=== PATIENT | female | born 1995 | race Caucasian/White ===

== ENCOUNTER 2017-11-04 18:45 | Inpatient (IN) | payer MEDICAID ==
[2017-11-04] MEDS ORDERED: LIDOCAINE 1% (MPF) 30 ML INJ INJ (20:30)
[2017-11-04] MEDS ORDERED: METHYLERGONOVINE 0.2 MG INJ IM (20:30)
[2017-11-04] MEDS ORDERED: IBUPROFEN 600 MG TAB PO (20:30)
[2017-11-04] MEDS ORDERED: CARBOPROST 250 MCG INJ IM (20:30)
[2017-11-04] MEDS ORDERED: OXYTOCIN 30 UNITS/LR 500 ML IV (20:30)
[2017-11-04] MEDS ORDERED: MISOPROSTOL 200 MCG TAB PR (20:30)
[2017-11-04] MEDS: LACTATED RINGER'S 1,000 ML IV (22:54)
[2017-11-04 22:59] LABS: ADD MAN DIFF? NO
[2017-11-04 23:02] LABS: BASOPHILS % 0.4 % (0.0-2.0); EOSINOPHILS # 0.1 10^3/ul (0.0-0.5); EOSINOPHILS % 0.9 % (0.0-7.0); HEMOGLOBIN 11.7 g/dl (12.0-16.0); LYMPHOCYTES # 2.2 10^3/ul (0.8-2.9); LYMPHOCYTES % 22.1 % (15.0-51.0); MEAN CORPUSCULAR HEMOGLOBIN 28.8 pg (29.0-33.0); MEAN CORPUSCULAR HGB CONC 33.4 g/dl (32.0-37.0); MEAN CORPUSCULAR VOLUME 86.2 fl (82.0-101.0); MEAN PLATELET VOLUME 10.8 fl (7.4-10.4); MONOCYTE # 0.5 10^3/ul (0.3-0.9); MONOCYTES % 5.5 % (0.0-11.0); NEUTROPHIL # 6.9 10^3/ul (1.6-7.5); NEUTROPHILS % 70.4 % (39.0-77.0); PLATELET COUNT 320 10^3/UL (140-415); RED BLOOD COUNT 4.06 10^6/ul (4.20-5.40)
[2017-11-04 23:02] LABS: WHITE BLOOD COUNT 9.9 10^3/ul (4.8-10.8)
[2017-11-04 23:19] LABS: INR 0.89; PROTIME 12.1 Sec (11.9-14.9); PT RATIO 0.9
[2017-11-04 23:20] LABS: PARTIAL THROMBOPLASTIN TIME 27.7 Sec (25.0-35.0)
[2017-11-05] MEDS: LACTATED RINGER'S 1,000 ML IV ×2 (06:15→13:01)
[2017-11-05] MEDS: OXYTOCIN 30 UNITS/LR 500 ML IV ×4 (08:21→21:40)
[2017-11-05] MEDS: BUTORPHANOL 2 MG INJ IV ×2 (10:44→13:51)
[2017-11-05 17:39] LABS: RAPID PLASMA REAGIN NONREACTIVE (NR)
[2017-11-05] MEDS ORDERED: OXYCODONE/ASPIRIN (4.88/325) TAB PO (21:00)
[2017-11-05] MEDS ORDERED: HYDROCODONE/APAP (5/325) TAB PO ×2 (21:00)
[2017-11-05] MEDS ORDERED: ACETAMINOPHEN 325 MG TAB PO (21:00)
[2017-11-05] MEDS ORDERED: ONDANSETRON 4 MG INJ IV (21:00)
[2017-11-05] MEDS: SENNA/DOCUSATE NA (8.6MG/50MG) TAB PO (21:38)
[2017-11-06] MEDS: IBUPROFEN 600 MG TAB PO ×5 (00:26→22:52)
[2017-11-06] MEDS: WITCH HAZEL/GLYCERIN PAD PR (00:28)
[2017-11-06] MEDS: BENZOCAINE 20% 56 ML SPRAY TOP (00:28)
[2017-11-06] MEDS: LANOLIN 7 GM TUBE TOP (00:28)
[2017-11-06] MEDS: OXYCODONE/ASPIRIN (4.88/325) TAB PO (09:19)
[2017-11-06] MEDS: SENNA/DOCUSATE NA (8.6MG/50MG) TAB PO ×2 (09:19→21:08)
[2017-11-06] MEDS: DIBUCAINE 1% 30 GM OINT PR (09:19)
[2017-11-06 12:36] LABS: ADD MAN DIFF? NO
[2017-11-06 12:55] LABS: WHITE BLOOD COUNT 8.2 10^3/ul (4.8-10.8)
[2017-11-06 12:55] LABS: BASOPHILS % 0.5 % (0.0-2.0); EOSINOPHILS # 0.1 10^3/ul (0.0-0.5); EOSINOPHILS % 0.7 % (0.0-7.0); HEMATOCRIT 29.4 % (37.0-47.0); HEMOGLOBIN 9.6 g/dl (12.0-16.0); LYMPHOCYTES # 1.6 10^3/ul (0.8-2.9); LYMPHOCYTES % 19.2 % (15.0-51.0); MEAN CORPUSCULAR HEMOGLOBIN 29.1 pg (29.0-33.0); MEAN CORPUSCULAR HGB CONC 32.7 g/dl (32.0-37.0); MEAN CORPUSCULAR VOLUME 89.1 fl (82.0-101.0); MEAN PLATELET VOLUME 10.4 fl (7.4-10.4); MONOCYTE # 0.4 10^3/ul (0.3-0.9); MONOCYTES % 4.7 % (0.0-11.0); NEUTROPHIL # 6.1 10^3/ul (1.6-7.5); NEUTROPHILS % 74.4 % (39.0-77.0); PLATELET COUNT 260 10^3/UL (140-415); RED CELL DISTRIBUTION WIDTH 14.3 % (11.5-14.5)
[2017-11-07] MEDS: IBUPROFEN 600 MG TAB PO ×2 (06:00→10:24)
[2017-11-07] MEDS: SENNA/DOCUSATE NA (8.6MG/50MG) TAB PO (09:01)
[2017-11-07] MEDS: MEASLES,MUMPS,RUBELLA VACCINE INJ SC* (09:01)
== END 2017-11-07 17:30 | disposition home or self-care (01) | DRG 775 ==
LOC: OBT 18:45 → L-D 11-05 08:35 → PP1 11-05 18:06 → OBT 20:15 → L-D 20:15
PROVIDERS: Obstetrics & Gynecology
PROC: 10E0XZZ Delivery of Products of Conception, External Approach (ICD-10-PCS; principal; 2017-11-05)
PROC: 0UQMXZZ Repair Vulva, External Approach (ICD-10-PCS; 2017-11-05)
PROC: 3E033VJ Introduction of Other Hormone into Peripheral Vein, Percutaneous Approach (ICD-10-PCS; 2017-11-05)
DX: O70.0 First degree perineal laceration during delivery (principal); Z3A.38 38 weeks gestation of pregnancy; Z37.0 Single live birth
CPT/HCPCS: 36415; 85025; 85610; 85730; 86592; 86850; 86900; 86901; 94760; 99464